=== PATIENT | female | born 1970 | race Native Hawaiian/Other Pacific Islander ===

== ENCOUNTER 2018-08-03 19:12 | Emergency (ER) | payer OTHER ==
[2018-08-03 19:16] VITALS: BP 132/78; PULSE 63; TEMP 98.3; BMI 24.5
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
[2018-08-03] MEDS ORDERED: AMOX TR/POT CLAV 875MG/125MG TABLETS (FP) PO ONE (19:55)
[2018-08-03] MEDS ORDERED: BACITRACIN 15 GM TUBE TOPICAL OINTMENT TP ONE (19:56)
[2018-08-03] MEDS ORDERED: DIPHTH,PERTUSS(ACELL),TET 0.5 ML DISP.SYRIN IM ONE (20:02)
[2018-08-03] MEDS ORDERED: AMOX TR/POT CLAV 875MG/125MG TABLETS (FP) ONE (20:03)
[2018-08-03] MEDS ORDERED: BACITRACIN 0.9 GM PACKET ONE (20:04)
== END 2018-08-03 20:38 | disposition home or self-care (01) ==
LOC: JERFT 19:12
PROC: 3E0234Z Introduction of Serum, Toxoid and Vaccine into Muscle, Percutaneous Approach (ICD-10-PCS; principal; 2018-08-03)
DX: S61.452A Open bite of left hand, initial encounter (principal); W50.3XXA Accidental bite by another person, initial encounter; Y93.89 Activity, other specified; Y92.118 Other place in children's home and orphanage as the place of occurrence of the external cause; Y99.8 Other external cause status
CPT/HCPCS: 36415; 84460; 86704; 86706; 86708; 86803; 87340; 87389; 90715; 99281-25

== ENCOUNTER 2019-11-16 07:42 | Emergency (ER) | payer OTHER ==
[2019-11-16 07:53] VITALS: BP 125/65; PULSE 62; TEMP 97.6; BMI 24.7
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
== END 2019-11-16 08:59 | disposition home or self-care (01) ==
LOC: JER 07:42
PROC: 2W3JX1Z Immobilization of Right Finger using Splint (ICD-10-PCS; principal; 2019-11-16)
DX: S63.636A Sprain of interphalangeal joint of right little finger, initial encounter (principal); X50.9XXA Other and unspecified overexertion or strenuous movements or postures, initial encounter; Y93.F9 Activity, other caregiving; Y92.198 Other place in other specified residential institution as the place of occurrence of the external cause; Y99.0 Civilian activity done for income or pay
CPT/HCPCS: 73140-TC-RT-FY; 99281-25